=== PATIENT | male | born 1995 | race Caucasian/White ===

== ENCOUNTER → 2019-05-18 10:52 | Outpatient (BNVA) | payer OTHER, SELFPAY | PROVIDERS: Family Provider Family Medicine; PCP Family Medicine; Referring Provider Plastic Surgery; Visit Provider Otolaryngology | DX: S02.2XXA Fracture of nasal bones, initial encounter for closed fracture (principal); X58.XXXA Exposure to other specified factors, initial encounter; J30.9 Allergic rhinitis, unspecified | CPT/HCPCS: 31575; 96372; 99214; J3301 ==